=== PATIENT | female | born 1985 | race Caucasian/White ===

== ENCOUNTER 2017-10-18 20:12 | Inpatient (IN) | payer OTHER ==
[2017-10-18 21:48] LABS: BASO % 0.1 % (0-2.0); EOS % 0.5 % (0-4.5); HEMATOCRIT 35.4 % (32.4-45.2); HEMOGLOBIN 11.8 GM/dL (10.7-15.3); LYMPH % 28.9 % (8-40); MCH 29.1 pg (25.7-33.7); MCHC 33.3 g/dl (32.0-36.0); MEAN CELL VOLUME 87.3 fl (80-96); MEAN PLT VOLUME 11.1 fl (7.5-11.1); MONO % 6.4 % (3.8-10.2); NEUT % 64.1 % (42.8-82.8); PLATELET COUNT 144 K/MM3 (134-434); RBC 4.06 M/mm3 (3.60-5.2); RDW 14.1 % (11.6-15.6); WHITE BLOOD COUNT 8.9 K/mm3 (4.0-10.0)
[2017-10-18 21:52] VITALS: BMI 27.5
[2017-10-18 22:06] LABS: INR 0.84 (0.82-1.09); PROTHROMBIN TIME (PATIENT) 9.5 SEC (9.7-13.0)
[2017-10-18 22:09] LABS: ACTIVATED PTT 25.8 SECONDS (25.2-36.5)
[2017-10-18 22:13] LABS: ANION GAP 9 (8-16); BLOOD UREA NITROGEN 16 mg/dL (7-18); CALCIUM 8.5 mg/dL (8.5-10.1); CHLORIDE 105 mmol/L (98-107); CO2 23 mmol/L (21-32); CREATININE 0.6 mg/dL (0.55-1.02); GLUCOSE,RANDOM 76 mg/dL (74-106); POTASSIUM 4.7 mmol/L (3.5-5.1); SODIUM 137 mmol/L (136-145)
[2017-10-18] MEDS ORDERED: BUTORPHANOL TARTRATE 1 MG/ML VIAL ONE ×2 (23:11)
[2017-10-18] MEDS ORDERED: PROMETHAZINE HCL 25 MG/1 ML VIAL ONE (23:11)
--- NOTE | 2017-10-18 23:13 | HP ---
Past Medical History - Primary Care Physician PCP:: Zelda Garcia - Admission Chief Complaint: 32 yrs , 39,3/7 weeks onset LP since 8.00 pm stronger accompanied by show, prior to that since 8.00AM infrequent History of Present Illness: PNC at [address] [place] [address] wt gain 11 lbs panel O Pos, rpr nrr, rubella immune, hbsag neg, sickle neg, hiv neg, pap nilm,,gc/c/t neg, quantiferon neg, pngt 81 , gbs neg sono done .08/19 sono 30.5 wks, ephraim 12.7, transverse cx 3.7, lo lying placenta subsequent sono 09/05/17 lo lying placenta resolved, vx , ephraim 12.6, efw 4'10" History Source: Patient, Medical Record Limitations to Obtaining History: No Limitations - Past Medical History 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 Weeks Gestation by Dates: 38.0 ...EDC by Dates: 11/01/17 ...EDC by Sono: 10/22/17 (39.3 weeks by sono ) Heme/Onc: No: Anemia Infectious Disease: No: AIDS, HIV, STD's, Tuberculosis Psych: No: Addictions, Anxiety, Bipolar, Depression, Panic, Schizophrenia Endocrine: No: Brissa's Disease, Diabetes Mellitus, Hyperthyroidism - Past Surgical History Past Surgical History: Yes: None Hx Myomectomy: No Hx Transabdominal Cerclage: No - Smoking History Smoking history: Never smoked Have you smoked in the past 12 months: No - Alcohol/Substance Use Hx Alcohol Use: No History of Substance Use: reports: None Home Medications - Allergies Allergies/Adverse Reactions: Allergies Allergy/AdvReac Type Severity Reaction Status Date / Time No Known Allergies Allergy Verified 07/05/18 22:34 - Home Medications Home Medications: Ambulatory Orders Iron 1 tab PO DAILY 08/19/17 Vit,Calc76/Iron/Folic [Pnv 29-1 Tablet] 1 tab PO DAILY 08/19/17 Physical Exam - Maternity Vital Signs: Vital Signs Temperature 98.5 F 10/18/17 21:41 Pulse Rate 79 10/18/17 21:41 Respiratory Rate 20 10/18/17 21:41 Blood Pressure 124/83 10/18/17 21:41 O2 Sat by Pulse Oximetry (%) Selected Entries 10/18/17 21:41 Weight 141 lb Constitutional: Yes: Well Nourished, Moderate Distress Eyes: Yes: WNL HENT: Yes: WNL Neck: Yes: WNL Cardiovascular: Yes: WNL, Bruit Lungs: Clear to auscultation Breast(s): Yes: WNL - Abdominal Exam/OB Fundal Height: 39 Number of Fetuses: Single Presentation: Vertex Contractions: Yes Regularity: Irregular (6-8) Intensity: Moderate Monitor Mode: External Heart Rate (range): 130 Heart Rate Location: [facility] Category: I Accelerations: Uniform Decelerations: None - Vaginal Exam/OB Vaginal Bleediing: Bloody Show Speculum Exam: No Dilatation (cm): 3- Effacement (%): 70 Amniotic Membrane Status: Intact Presentation: Vertex/Position Station: -3 (-3/-2) - Physical Exam Musculoskeletal: Yes: WNL Extremities: Yes: WNL Edema: Yes Edema: LLE: 1+, RLE: 1+ Integumentary: Yes: WNL Deep Tendon Reflex Grade: Normal +2 ...Motor Strength: WNL Psychiatric: Yes: WNL - Labs Lab Results: CBC, BMP 10/18/17 21:35 10/18/17 21:35 Problem List - Problems (1) with 39 completed weeks gestation Code(s): Z3A.39 - 39 WEEKS GESTATION OF (2) Labor established Code(s): WER7771 - Assessment/Plan 32 yrs 39.3/7 weeks by sono, 38 weeks by dates admitted in labor pt may ambulate 11.00 pM repeat pelvic exam : 5 cm/80%/ -2 fhr 140 , cat-1 uc 2-3 min Plan stadol 2 mg + phenrgan 25 mg iv stat anticipate vag , delivery
[2017-10-18] MEDS ORDERED: DEXTROSE 5%-LACTATED RINGERS 1,000 ML IV SCH (23:15)
[2017-10-18] MEDS ORDERED: PROMETHAZINE HCL 25 MG/1 ML VIAL IVPUSH ONE (23:15)
[2017-10-18] MEDS ORDERED: BUTORPHANOL TARTRATE 1 MG/ML VIAL IVPB ONE (23:15)
[2017-10-19] MEDS ORDERED: OXYTOCIN 20 UNITS in 0.9% NS 20 UNIT/1,000 ML INFUS.BAG IV ONE ×2 (03:07→04:04)
--- NOTE | 2017-10-19 03:10 | PN ---
Progress Note, Labor Vaginal Exam #1 Labor Exam Date: 10/19/17 Labor Exam Time: 03:00 Heart Rate (range): 140 Dilatation: 9 Effacement (%): 100 Amniotic Membrane Status: Ruptured Presentation: Vertex/Position Station: +2 Remarks: fhr cat-1 uc 2-3 min Selected Entries 10/19/17 01:00 Temperature 98.0 F Pulse Rate 77 Blood Pressure 130/80 Laboratory Tests 10/18/17 21:35 PT with INR 9.50 L INR 0.84 L PTT (Actin FS) 25.8 L 3.05 AM fully dilated & pushing
[2017-10-19 03:39] LABS: ARTERIAL BLD GAS O2 SATURATION 26.1 % (90-98.9); ARTERIAL BLOOD GAS BASE EXCESS -2.9 meq/l (-2-2); ARTERIAL BLOOD GAS PCO2 64.6 mmHg (35-45); ARTERIAL BLOOD GAS PO2 18.2 mmHg (80-100); ARTERIAL BLOOD GAS pH 7.23 (7.35-7.45)
[2017-10-19 03:42] LABS: VENOUS PC02 43.7 mmHg (38-52); VENOUS PH 7.36 (7.32-7.42); VENOUS PO2 32.5 mmHg (28-48)
--- NOTE | 2017-10-19 03:42 | PN ---
Delivery - Delivery Vaginal Delivery: No Problems, Spontaneous (baby delievered in Vx , lizzie position , cord around neck x1 was untangled , ant shoulder delievered without difficulty,immediate oral & nasal suction was done amniotic fluid was lightly meconium stained ,, placenta delivered completely with membranes , bimanual massage was given iv pitocin started . 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
[2017-10-19] MEDS ORDERED: METHYLERGONOVINE MALEATE 0.2 MG/1 ML AMP IM PRN (04:14)
[2017-10-19] MEDS ORDERED: IBUPROFEN 600 MG TABLET (FP) PO PRN (04:14)
[2017-10-19] MEDS ORDERED: oxyCODONE HCL 5 MG TABLET PO PRN (04:14)
[2017-10-19] MEDS ORDERED: WITCH HAZEL 50% (TUCKS) 40 PAD/JAR PAD TP PRN (04:14)
[2017-10-19] MEDS ORDERED: BENZOCAINE 20% 57 GM BOTTLE TP PRN (04:14)
[2017-10-19] MEDS ORDERED: ACETAMINOPHEN 325 MG TABLET (FP) PO PRN (04:14)
[2017-10-19] MEDS ORDERED: BENZOCAINE 28 GM HEMORRHOIDAL OINTMENT TP PRN (04:14)
[2017-10-19] MEDS ORDERED: BISACODYL 10 MG SUPP.RECT RC PRN (04:14)
[2017-10-19] MEDS: OXYTOCIN 20 UNITS in 0.9% NS 20 UNIT/1,000 ML INFUS.BAG IV SCH (08:47)
[2017-10-19] MEDS: FERROUS SO4 325 MG TABLET (FP) PO SCH ×2 (08:47→17:12)
[2017-10-19] MEDS: PRENATAL VITAMINS W/ FOLIC ACID TABLET (FP) PO SCH (10:16)
--- NOTE | 2017-10-20 05:58 | PN ---
Post Progress Note - Subjective Subjective: no c/o excessive bleeding c/o cramps Post Day: 1 Type of Delivery: Vital Signs: Vital Signs Temperature 97.9 F 10/20/17 01:57 Pulse Rate 68 10/20/17 01:57 Respiratory Rate 18 10/20/17 01:57 Blood Pressure 104/55 10/20/17 01:57 O2 Sat by Pulse Oximetry (%) 98 10/19/17 04:15 Breast Exam: Yes: Soft, Other (BF ). No: Engorged Uterus: Yes: Fundus Firm, Fundus below umbilicus, Non-tender Lochia: Yes: Rubra Lochia, amount: Moderate Extremities: Yes: Calves non-tender Perineum: Yes: Intact, Laceration Activity: Ambulating - Labs Labs: CBC WBC 8.9 K/mm3 (4.0-10.0) 10/18/17 21:35 RBC 4.06 M/mm3 (3.60-5.2) 10/18/17 21:35 Hgb 11.8 GM/dL (10.7-15.3) 10/18/17 21:35 Hct 35.4 % (32.4-45.2) D 10/18/17 21:35 MCV 87.3 fl (80-96) 10/18/17 21:35 MCH 29.1 pg (25.7-33.7) 10/18/17 21:35 MCHC 33.3 g/dl (32.0-36.0) 10/18/17 21:35 RDW 14.1 % (11.6-15.6) 10/18/17 21:35 Plt Count 144 K/MM3 (134-434) 10/18/17 21:35 MPV 11.1 fl (7.5-11.1) D 10/18/17 21:35 Absolute Neuts (auto) 5.7 # 10/18/17 21:35 Neutrophils % 64.1 % (42.8-82.8) 10/18/17 21:35 Lymphocytes % 28.9 % (8-40) D 10/18/17 21:35 Monocytes % 6.4 % (3.8-10.2) 10/18/17 21:35 Eosinophils % 0.5 % (0-4.5) 10/18/17 21:35 Basophils % 0.1 % (0-2.0) 10/18/17 21:35 Nucleated RBC % 0 % (0-0) 10/18/17 21:35 Problem List - Problems (1) with 39 completed weeks gestation Code(s): Z3A.39 - 39 WEEKS GESTATION OF (2) Labor established Code(s): WAD7254 - (3) Normal vaginal delivery Code(s): O80 - ENCOUNTER FOR FULL-TERM UNCOMPLICATED DELIVERY (4) Encounter for routine follow-up Code(s): Z39.2 - ENCOUNTER FOR ROUTINE FOLLOW-UP Assessment/Plan stable cbc today plan ct pp care
[2017-10-20] MEDS: OXYTOCIN 20 UNITS in 0.9% NS 20 UNIT/1,000 ML INFUS.BAG IV SCH (07:50)
[2017-10-20] MEDS: FERROUS SO4 325 MG TABLET (FP) PO SCH ×2 (07:50→17:46)
[2017-10-20 08:32] LABS: BASO % 0.2 % (0-2.0); EOS % 0.6 % (0-4.5); HEMATOCRIT 31.8 % (32.4-45.2); HEMOGLOBIN 10.8 GM/dL (10.7-15.3); LYMPH % 26.4 % (8-40); MCH 29.6 pg (25.7-33.7); MCHC 33.9 g/dl (32.0-36.0); MEAN CELL VOLUME 87.4 fl (80-96); MEAN PLT VOLUME 10.7 fl (7.5-11.1); MONO % 5.4 % (3.8-10.2); NEUT % 67.4 % (42.8-82.8); PLATELET COUNT 133 K/MM3 (134-434); RBC 3.63 M/mm3 (3.60-5.2); RDW 14.3 % (11.6-15.6); WHITE BLOOD COUNT 13.1 K/mm3 (4.0-10.0)
[2017-10-20] MEDS: PRENATAL VITAMINS W/ FOLIC ACID TABLET (FP) PO SCH (10:00)
[2017-10-20 20:54] VITALS: TEMP 98.4
[2017-10-20] MEDS ORDERED: SENNOSIDES/DOCUSATE COMBO (SENNA PLUS) TABLET (UD) PO PRN (22:00)
--- NOTE | 2017-10-21 07:19 | DS ---
Physical Exam-ULTRASONIC TESTER Vital Signs: Vital Signs Temperature 98.4 F 10/20/17 20:53 Pulse Rate 76 10/20/17 20:53 Respiratory Rate 18 10/20/17 20:53 Blood Pressure 111/65 10/20/17 20:53 O2 Sat by Pulse Oximetry (%) 98 10/19/17 04:15 Constitutional: Yes: Well Nourished Eyes: Yes: WNL HENT: Yes: WNL Neck: Yes: WNL Cardiovascular: Yes: WNL Respiratory: Yes: WNL Gastrointestinal: Yes: WNL ...Rectal Exam: Yes: WNL Renal/: Yes: WNL Pelvis: Yes: WNL ....Post : Yes: Uterus firm, Uterus non-tender, Moderate lochia rubra ( perineum intact) Breast(s): Yes: WNL (BF) Musculoskeletal: Yes: WNL Extremities: Yes: WNL. No: Calf Tenderness Edema: LLE: 1+, RLE: 1+ Integumentary: Yes: WNL Neurological: Yes: WNL, Alert, Oriented ...Motor Strength: WNL Psychiatric: Yes: WNL, Alert, Oriented Labs: CBC, BMP 10/20/17 06:20 10/18/17 21:35 Delivery - Delivery Vaginal Delivery: No Problems, Spontaneous (baby delievered in Vx , lizzie position , cord around neck x1 was untangled , ant shoulder delievered without difficulty,immediate oral & nasal suction was done amniotic fluid was lightly meconium stained ,, placenta delivered completely with membranes , bimanual massage was given iv pitocin started . 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 pp course unevntful discharge today. Discharge Summary Reason For Visit: LABOR Current Active Problems Encounter for routine follow-up (Acute) Labor established (Acute) Normal vaginal delivery (Acute) with 39 completed weeks gestation (Acute) Condition: Stable - Instructions Diet, Activity, Other Instructions: Post Instructions DIET: Continue good diet high in protein, calcium, and iron rich foods. Drink at least eight (8) glasses of water daily in addition to other fluids. ___ Regular diet MEDICATIONS: Continue vitamins and iron as previously directed. Motrin and Tylenol may be taken for minor discomfort. ACTIVITY: Mild to moderate exercise may be started in two (2) weeks. Take frequent rest periods. Resume normal activity after six (6) week check up. WOUND CARE OF OPERATIVE SITE: Continue use of perineal bottle until vaginal discharge stops. Keep area clean. Shower daily. Keep abdominal wound dry. Report any drainage or redness to physician. Tub baths, tampons and douches are not permitted for [address] _ Breast feeding & or _ Bottle feeding BREAST CARE: (For those that are not breast feeding): If engorgement occurs: Wear tight fitting bra. Take Tylenol or Motrin for pain. Apply cold packs (ice in bags to each breast ) FAMILY PLANNING: There are many control alternatives to pursue and they should be discussed at your first office visit. You may resume sexual activity after your six (6) week check up. (Remember, breast feeding is not a contraceptive) NEXT PHYSICIAN APPOINTMENT: Be certain to call for a six (6) week appointment, unless otherwise directed. Call Clinic or got to Emergency Dept if you have any of the following: Heavy vaginal bleeding Painful urination Leg pain Unusual odor noted to vaginal bleeding High fever Red streaking noted on breast Referrals: Zelda Garcia MD [Staff Physician] - Disposition: HOME - Home Medications Comprehensive Discharge Medication List: Ambulatory Orders Iron 1 tab PO DAILY 08/19/17 Vit,Calc76/Iron/Folic [Pnv 29-1 Tablet] 1 tab PO DAILY 08/19/17 Acetaminophen [Tylenol .Regular Strength -] 650 mg PO Q3H PRN tablet 10/19/17 Ferrous Sulfate [Feosol] 325 mg PO BIDWM tab 10/19/17 Ibuprofen [Motrin -] 200 mg PO Q4H PRN tablet 10/19/17 Vitamins (Sjr) - 1 tab PO DAILY tablet 10/19/17 [place]nie 50% (Tucks) [Tucks Pads -] 1 pad TP PRN PRN pad 10/19/17
[2017-10-21] MEDS: FERROUS SO4 325 MG TABLET (FP) PO SCH (09:46)
[2017-10-21] MEDS: PRENATAL VITAMINS W/ FOLIC ACID TABLET (FP) PO SCH (09:46)
[2017-10-21 10:38] VITALS: BP 92/58; PULSE 81
[2017-10-21] MEDS: OXYTOCIN 20 UNITS in 0.9% NS 20 UNIT/1,000 ML INFUS.BAG IV SCH (10:38)
== END 2017-10-21 11:00 | disposition home or self-care (01) | DRG 560 ==
LOC: JDEL 20:12 → JLDR 20:50 → J3W 10-19 04:40
PROVIDERS: ADMIT Obstetrics & Gynecology; ATTEND Obstetrics & Gynecology
PROC: 10E0XZZ Delivery of Products of Conception, External Approach (ICD-10-PCS; principal; 2017-10-19)
PROC: 0HQ9XZZ Repair Perineum Skin, External Approach (ICD-10-PCS; 2017-10-19)
PROC: 0W8NXZZ Division of Female Perineum, External Approach (ICD-10-PCS; 2017-10-19)
DX: O70.0 First degree perineal laceration during delivery (principal); Z3A.39 39 weeks gestation of pregnancy; O69.81X0 Labor and delivery complicated by cord around neck, without compression, not applicable or unspecified; Z37.0 Single live birth
CPT/HCPCS: 36415; 36600; 59409; 80048; 82803; 85025; 85610; 85730; 86593; 86850; 86900; 86901